=== PATIENT | male | born 1995 | race African-American/Black ===

== ENCOUNTER 2023-09-16 02:24 | Emergency (ER) | payer OTHER ==
[~2023-09-16] VITALS: Ht 172.7 cm; Wt 58.0 kg
[2023-09-16 02:27] VITALS: BP 133/71; PULSE 74; RESP 18; TEMP 98.5; O2SAT 98
[2023-09-16] MEDS: LORAZEPAM 1MG TABLET PO ONE (02:52)
== END 2023-09-16 03:35 | disposition home or self-care (01) ==
LOC: ER 02:24
DX: F41.9 Anxiety disorder, unspecified (principal); F12.90 Cannabis use, unspecified, uncomplicated
CPT/HCPCS: 99283

== ENCOUNTER 2023-09-30 01:35 | Emergency (ER) | payer OTHER ==
[~2023-09-30] VITALS: Ht 172.7 cm; Wt 78.0 kg
[2023-09-30 01:39] VITALS: O2SAT 98
[2023-09-30] MEDS: KETOROLAC 15MG/ML VIAL IM ONE (02:00)
[2023-09-30 04:04] LABS: BASOPHILS % 0.4 % (0.0-2.0); EOSINOPHILS % 0.4 % (0.0-5.0); HEMATOCRIT. 38.2 % (42.0-52.0); HEMOGLOBIN. 12.8 g/dL (14.0-18.0); LYMPHOCYTES % 23.3 % (20.0-50.0); MEAN CORPUSCULAR HEMOGLOBIN 30.1 pg (28.0-32.0); MEAN CORPUSCULAR HGB CONC 33.5 g/dL (31.0-37.0); MEAN CORPUSCULAR VOLUME 89.7 fL (80.0-94.0); MEAN PLATELET VOLUME 8.3 fl (7.4-10.4); MONOCYTES % 8.1 % (2.0-8.0); NEUTROPHILS % 67.8 % (40.0-76.0); PLATELET 164 x1000/uL (130-400); RED BLOOD CELL COUNT 4.25 mill/uL (4.7-6.1); RED CELL DISTRIBUTION WIDTH 14.8 % (11.6-14.6); WHITE BLOOD COUNT 6.9 x1000/uL (4.5-11.0)
[2023-09-30 04:22] LABS: CARBON DIOXIDE 29 mEq/L (21-32); CHLORIDE 105 mEq/L (98-107); POTASSIUM 3.6 mEq/L (3.5-5.1); SODIUM 139 mEq/L (136-145)
[2023-09-30 04:23] LABS: CALCIUM 8.7 mg/dL (8.7-10.4)
[2023-09-30 04:28] LABS: CREATININE 1.1 mg/dL (0.6-1.3); GLUCOSE 121 mg/dL (70-105); UREA NITROGEN BLOOD 12 mg/dL (9-23)
[2023-09-30] MEDS: KETOROLAC 15MG/ML VIAL IM NR (04:39)
[2023-09-30] MEDS ORDERED: ONDA4TAB50 MT (06:07)
[2023-09-30] MEDS ORDERED: IBUP-2028 MT (06:07)
[2023-09-30] MEDS: IOHEXOL-350 100 ML BOTTLE ONE (06:48)
[2023-09-30 06:50] VITALS: BP 111/41; PULSE 42; RESP 14; TEMP 98.2
== END 2023-09-30 06:54 | disposition home or self-care (01) ==
LOC: ER 01:35
DX: R51.9 Headache, unspecified (principal); F12.90 Cannabis use, unspecified, uncomplicated
CPT/HCPCS: 99285; 70496; 80048; 85025; 36415; 70450; 96372; Q9967; J1885